=== PATIENT | female | born 1980 | race African-American/Black ===

== ENCOUNTER 2024-05-01 15:09 | Emergency (ER) | payer BC, OTHER ==
[2024-05-01 15:20] VITALS: RESP 18; TEMP 98.8; BMI 36.3
[2024-05-01 16:22] LABS: BASO % 0.9 % (0-2.0); HEMATOCRIT 38.8 % (32.4-45.2); MCH 29.8 pg (25.7-33.7); MCHC 33.4 g/dl (32.0-36.0); MEAN CELL VOLUME 89.1 fl (80-96); MEAN PLT VOLUME 8.8 fl (7.5-11.1); MONO % 7.4 % (3.8-10.2); NEUT % 50.7 % (42.8-82.8); PLATELET COUNT 299 10^3/uL (134-434); RBC 4.35 M/mm3 (3.60-5.2); RDW 13.4 % (11.6-15.6); WHITE BLOOD COUNT 5.6 K/mm3 (4.0-10.0)
[2024-05-01 16:39] LABS: POTASSIUM 3.9 mmol/L (3.5-5.1)
[2024-05-01 16:41] LABS: BLOOD UREA NITROGEN 7.6 mg/dL (7-18); CALCIUM 9.8 mg/dL (8.5-10.1); MAGNESIUM 2.1 mg/dL (1.8-2.4)
[2024-05-01 16:44] LABS: CREATININE 0.7 mg/dL (0.55-1.3)
[2024-05-01 16:45] LABS: BILIRUBIN,TOTAL 0.3 mg/dL (0.2-1); TOT PROT 7.6 g/dl (6.4-8.2)
[2024-05-01 17:17] VITALS: BP 126/76; PULSE 57
[2024-05-01 17:32] LABS: ACTIVATED PTT 34.3 SECONDS (25.2-36.5); INR 1.29 (0.83-1.09); PROTHROMBIN TIME (PATIENT) 14.5 SEC (9.7-13.0)
== END 2024-05-01 17:39 | disposition home or self-care (01) ==
LOC: JER 15:09
DX: R07.89 Other chest pain (principal); R20.2 Paresthesia of skin
CPT/HCPCS: 36415; 71045-TC-FY; 80053; 83735; 84484; 85025; 85610; 85730; 93005; 93010; 99285-25